=== PATIENT | male | born 1945 | race Caucasian/White ===

== ENCOUNTER → 2020-09-30 10:04 | Outpatient (BNVA) | payer OTHER, SELFPAY | PROVIDERS: Family Provider Emergency Medicine Emergency Medical Services; PCP Emergency Medicine Emergency Medical Services; Visit Provider Surgery | DX: Z12.11 Encounter for screening for malignant neoplasm of colon (principal); Z12.12 Encounter for screening for malignant neoplasm of rectum; Z20.822 Contact with and (suspected) exposure to COVID-19 | CPT/HCPCS: 87635 ==

== ENCOUNTER 2022-08-29 20:00 | Outpatient (CLI) | payer OTHER, SELFPAY | END 2022-08-29 20:01 | disposition home or self-care (01) | LOC: SLEEP 08-30 04:59 | PROVIDERS: Family Provider Emergency Medicine Emergency Medical Services; PCP Emergency Medicine Emergency Medical Services; Visit Provider Emergency Medicine Emergency Medical Services | DX: R06.83 Snoring (principal); R53.83 Other fatigue | CPT/HCPCS: 95810 ==

== ENCOUNTER → 2022-10-16 10:35 | Outpatient (BNVA) | payer OTHER, SELFPAY | PROVIDERS: Family Provider Emergency Medicine Emergency Medical Services; PCP Emergency Medicine Emergency Medical Services; Visit Provider Nurse Practitioner Family | DX: L40.0 Psoriasis vulgaris (principal); D22.5 Melanocytic nevi of trunk; L81.4 Other melanin hyperpigmentation; L85.3 Xerosis cutis; L57.0 Actinic keratosis; L72.0 Epidermal cyst; L57.8 Other skin changes due to chronic exposure to nonionizing radiation | CPT/HCPCS: 17000; 17003; 99214 ==

== ENCOUNTER 2023-01-30 09:17 | Outpatient (CLI) | payer OTHER, SELFPAY ==
[2023-01-30 10:03] LABS: Add Urine Microscopic? NO; Charge for UA Resulting for Rev
[2023-01-30 10:18] LABS: Bilirubin Urine Neg (Negative); Blood Urine Neg (Negative); Glucose Urine UA Norm (Normal); Ketones Urine Negative (Negative); Leukocyte Esterase Urine Negative (Negative); Nitrate Urine Negative (Negative); Protein Urine Neg (Negative); Specific Gravity, Urine 1.025 (1.005-1.030); Urine Appearance Clear (CLEAR); Urine Color Dark Yellow (Yellow); Urobilinogen Urine Norm (Negative); pH Urine 5 (5-7)
[2023-01-30 10:33] LABS: Alanine Aminotransferase 8 U/L (0-41); Albumin Level 4.3 g/dL (3.5-5.2); Alkaline Phosphatase 57 U/L (40-130); Aspartate Amino Transferase 13 U/L (0-40); Blood Urea Nitrogen 15 mg/dL (8-23); Calcium 9.2 mg/dL (8.5-10.5); Carbon Dioxide 25 mmol/L (22-29); Chloride 106 mmol/L (98-107); Globulin 3.1 g/dL (1.3-4.6); Glucose 119 mg/dL (65-115); Osmolality Calculated 294 mOsm/kg (285-295); Sodium 141 mmol/L (136-145); Total Bilirubin 0.4 mg/dL (0.15-1.2); Total Protein 7.4 g/dL (6.6-8.7)
== END 2023-01-30 09:18 | disposition home or self-care (01) ==
LOC: LAB 09:19
PROVIDERS: Family Provider Emergency Medicine Emergency Medical Services; PCP Emergency Medicine Emergency Medical Services; Visit Provider Emergency Medicine Emergency Medical Services
DX: E11.9 Type 2 diabetes mellitus without complications (principal); Z79.899 Other long term (current) drug therapy
CPT/HCPCS: 36415; 80053; 81003

== ENCOUNTER → 2023-07-04 10:55 | Outpatient (BNVA) | payer OTHER, SELFPAY | PROVIDERS: Family Provider Emergency Medicine Emergency Medical Services; PCP Emergency Medicine Emergency Medical Services; Referring Provider Emergency Medicine Emergency Medical Services; Visit Provider Surgery | DX: Z12.11 Encounter for screening for malignant neoplasm of colon (principal) | CPT/HCPCS: 99204; 99214 ==

== ENCOUNTER 2023-09-27 08:50 | Day surgery (SDC) | payer OTHER, SELFPAY ==
[2023-09-27 09:09] VITALS: BP 155/73; PULSE 62; RESP 16; TEMP 36.6; O2SAT 99
[2023-09-27] MEDS: sodium chloride 0.9% 1,000 ML 30 ML IV (09:13)
--- NOTE | 2023-09-27 09:35 | ANES.PREANE2 ---
Pre-Anesthetic Assessment Height/Weight: Height 1.73 m Temp Pulse Resp BP Pulse Ox O2 Del Method 97.9 F 62 16 155/73 99 Room Air 09/27/23 09:09 09/27/23 09:09 09/27/23 09:09 09/27/23 09:09 09/27/23 09:09 09/27/23 09:09 Operation Date: 09/27/23 10:00 Proposed Procedures p Colonoscopy 65545, G0121, Z12.11(Not Applicable) - Praveen Barrera MD Was Beta Fabiola taken within 24 hours: N/A Was Clonidine taken within 24 hours: N/A Last intake: Intake Last Liquid Date 09/26/23 Last Liquid Time 22:00 Last Solid Date 09/25/23 Last Solid Time 14:00 Social Tobacco and No alcohol 1.5 pack(s) per day 60 pack years Exam alert, oriented x 3, clear to auscultation bilaterally and regular rate & rhythm Airway Submandibular: within normal limits Cervical ROM: within normal limits Mallampati: Class II Dentition: false Comments: Comments: Dentures removed History/ROS No significant history except as noted Pulmonary Chronic Obstructive Pulmonary Disease CV/HEM None reported None reported Hepatic None reported GI None reported Metabolic None reported Musc/skel None reported Neuropsych None reported Anesthetic Plan ASA status: 2 Anesthesia: MAC Risk of > 500 ml blood loss (7ml/kg in children): No Medications/Allergies Home Medications Medication Instructions Recorded Confirmed Last Taken Type aspirin 81 mg tablet,delayed 81 mg PO DAILY 08/05/20 09/27/23 09/25/23 History release lisinopril 10 mg tablet 10 mg PO DAILY 08/05/20 09/27/23 09/26/23 History rosuvastatin 5 mg tablet 5 mg PO DAILY 08/05/20 09/27/23 09/26/23 History clobetasol 0.05 % scalp solution 1 applic topical BID 2 weeks #50 mL 10/27/21 09/27/23 09/23/23 Rx ketoconazole 2 % shampoo 1 applic topical .2x weekly #120 mL 10/27/21 09/27/23 09/23/23 Rx clobetasol 0.05 % topical ointment 1 applic topical BID 2 weeks #45 07/06/23 08/08/24 08/05/24 Rx grams Allergies Allergy/AdvReac Type Severity Reaction Status Date / Time No Known Allergies Allergy Verified 07/04/23 11:16 Current Medications Generic Name Dose Route Start Last Admin Trade Name Dunia PRN Reason Stop Dose Admin Sodium Chloride 1,000 mls @ 30 mls/hr 09/27/23 09:00 09/27/23 09:13 Sodium Chloride 0.9% IV 30 mls/hr .Q24H NELLI Administration PFSH Anesthesia Medical History BPH (benign prostatic hyperplasia) COPD (chronic obstructive pulmonary disease) Hyperlipidemia Surgical History No pertinent past surgical history Social History Smoking and tobacco/nicotine status: current every day tobacco/nicotine user Alcohol intake: current Alcohol intake frequency: holidays/special occasions only Data Anesthesia Cardiac Studies: No Data to Display
--- NOTE | 2023-09-27 09:42 | W.PM.OPSFHP ---
Same Day Surgery H&P Indication for Procedure/HPI DATE OF PROCEDURE: September 27, 2023 CHIEF COMPLAINT/INDICATIONFOR SURGICAL PROCEDURE: need for screening colonoscopy PREOP DIAGNOSIS: need for screening colonoscopy PLANNED PROCEDURE: Operation Date: 09/27/23 10:00 Proposed Procedures p Colonoscopy 49715, G0121, Z12.11(Not Applicable) - Praveen Barrera MD Medications/Allergies* Home Medications Medication Instructions Recorded Confirmed Type aspirin 81 mg tablet,delayed 81 mg PO DAILY 08/05/20 09/27/23 History release lisinopril 10 mg tablet 10 mg PO DAILY 08/05/20 09/27/23 History rosuvastatin 5 mg tablet 5 mg PO DAILY 08/05/20 09/27/23 History Allergies/Adverse Reactions Allergy/AdvReac Type Severity Reaction Status Date / Time No Known Allergies Allergy Verified 07/04/23 11:16 Current Medications: Generic Name Dose Route Start Last Admin Trade Name Freq PRN Reason Stop Dose Admin Sodium Chloride 1,000 mls @ 30 mls/hr 09/27/23 09:00 09/27/23 09:13 Sodium Chloride 0.9% IV 30 mls/hr .Q24H NELLI Administration Pertinent History/Comorbid Conditions* Medical History (Updated 10/24/21 @ 13:17 by Patricia Garcia DO) BPH (benign prostatic hyperplasia) COPD (chronic obstructive pulmonary disease) Hyperlipidemia Surgical History (Updated 10/24/21 @ 13:17 by Patricia Garcia DO) No pertinent past surgical history Social History Smoking and tobacco/nicotine status: current every day tobacco/nicotine user Alcohol intake: current Alcohol intake frequency: holidays/special occasions only Pertinent Exam Findings alert, oriented x 3, clear to auscultation bilaterally and regular rate & rhythm Recommendations Surgery/Procedure today Coding Level of Care Code Acute Code for Chg Fwd
[2023-09-27 10:41] VITALS: BP 124/66; PULSE 56; RESP 18; TEMP 36.2; O2SAT 98
[2023-09-27 10:52] VITALS: BP 145/74; PULSE 58; RESP 18; O2SAT 97
[2023-09-27 11:10] VITALS: BP 139/75; PULSE 58; RESP 16; O2SAT 99
--- NOTE | 2023-09-27 11:25 | ANE.PACU2 ---
Inpatient post-anesthesia follow up: Airway intact: Yes Vital signs: Temperature 97.2 F Pulse Rate 58 Respiratory Rate 16 Blood Pressure 139/75 Pulse Oximetry 99 Oxygen Delivery Me thod Room Air Oxygen Flow Rate Fraction of Inspir ed Oxygen Hydration adequate: Yes Nausea and vomiting: No Pain level: 1 Mental status: Baseline
== END 2023-09-27 11:23 | disposition home or self-care (01) ==
PROVIDERS: PCP Family Medicine; Visit Provider Surgery
PROC: 0DJD8ZZ Inspection of Lower Intestinal Tract, Via Natural or Artificial Opening Endoscopic (ICD-10-PCS; CPT 45378; principal; 2023-09-27 10:00)
DX: Z12.11 Encounter for screening for malignant neoplasm of colon (principal); D12.4 Benign neoplasm of descending colon; D12.5 Benign neoplasm of sigmoid colon; D12.3 Benign neoplasm of transverse colon; D12.8 Benign neoplasm of rectum; N40.0 Benign prostatic hyperplasia without lower urinary tract symptoms; J44.9 Chronic obstructive pulmonary disease, unspecified; E78.5 Hyperlipidemia, unspecified; F17.200 Nicotine dependence, unspecified, uncomplicated; Z79.82 Long term (current) use of aspirin
CPT/HCPCS: 45380; 45385; 88305; J2704; J7030

== ENCOUNTER → 2023-10-17 14:25 | Outpatient (BNVA) | payer OTHER, SELFPAY | PROVIDERS: PCP Family Medicine; Visit Provider Surgery | DX: Z09 Encounter for follow-up examination after completed treatment for conditions other than malignant neoplasm (principal) | CPT/HCPCS: 99213 ==

== ENCOUNTER 2023-12-11 10:01 | Outpatient (CLI) | payer OTHER, SELFPAY ==
--- NOTE | 2023-12-11 10:09 | XR_ITS ---
WS: [id number] Exam: XR chest 2V* [id number] Date/Time of Exam: 12/11/2023 10:23 AM Reason For Exam: CHRONIC OBSTRUCTIVE PULMONARY DISEASE No priors. The lungs are hyperinflated and clear. Normal cardiomediastinal silhouette and regional bony elements . Mild spondylosis of the thoracic and visualized upper lumbar spine. XR/XR chest 2V* [id number] IMPRESSION: 1. Pulmonary hyperinflation that might indicate obstructive lung disease. No ac jackson process.
[2023-12-11 10:36] VITALS: PULSE 55; RESP 18; O2SAT 99
[2023-12-11] MEDS: albuterol 2.5 mg/3 mL Neb INHALATION (10:36)
[2023-12-11 10:40] VITALS: PULSE 57
== END 2023-12-11 10:02 | disposition home or self-care (01) ==
LOC: RT 10:03
PROVIDERS: PCP Family Medicine; Visit Provider Chiropractor
DX: J44.9 Chronic obstructive pulmonary disease, unspecified (principal)
CPT/HCPCS: 71046; 94060; J7613